=== PATIENT | male | born 1975 | race African-American/Black ===

== ENCOUNTER 2020-09-06 23:41 | Inpatient (IN) | payer OTHER, MEDICAID, SELFPAY ==
[~2020-09-06] VITALS: Ht 172.7 cm; Wt 83.5 kg
[~2020-09-06 23:41] MED LIST: ASC500 PO; ASPI-524 PO; BISA10SU61 RC; DEPAKOTE DR PO; DIPH25TA62 PO; DOCU100T10 PO; FAMO-132 PO; FERR325T30 SQ; HYDR-3919 PO; HYDR-3921 PO; HYDR-3927 PO; INSU100V; INSU100V9 SQ; LACT1CAP14 PO; LOVI40 SQ; MULT-1100 PO; OLAN5TAB3 PO; ONDA4TAB22 PO; SODI1TAB3 PO; VITAMIN B12 PO
[2020-09-06 23:43] VITALS: BP_SYST 111
--- NOTE | 2020-09-06 23:43 | NUR ---
Placed in room 04 . Placed on supervisor of officials, blood pressure machine and pulse oximeter. To gown for exam. Side rails up. Report given to JENNYFER YATES AND TATY RN
--- NOTE | 2020-09-06 23:48 | NUR ---
ER at bedside examining patient.
--- NOTE | 2020-09-06 23:48 | NUR ---
PATIENT ARRIVED WITH TAMMI STATING FULL CODE
[2020-09-07] MEDS ORDERED: ONDANSETRON HCL 4 MG/2 ML VIAL IVP ONE
[2020-09-07] MEDS ORDERED: NACL 0.9% 1,000 ML IV ONE
[2020-09-07] MEDS ORDERED: CLINDAMYCIN 900 mg/50mL D5W 50 ML IV ONE
[2020-09-07] MEDS ORDERED: PIPERACILLIN/TAZO 3.375 GM in NS 50 ML IV ONE ×2
--- NOTE | 2020-09-07 00:01 | NUR ---
Medication reconciliation completed with information provided by [facility]. Any prior medication reconciliation on file was reviewed and corrected.
--- NOTE | 2020-09-07 00:15 | NUR ---
WOUND TO LEFT BUTTOCK CLEANSED WITH BETADINE AND NS. COVERED WITH GAUZE.
[2020-09-07] MEDS ORDERED: PIPERACILLIN/TAZOBACTAM 3.375 GM/VIAL (ZOSYN) IV ONE ×2 (00:16→04:55)
--- NOTE | 2020-09-07 00:26 | NUR ---
PT BIB BLS AMBULANCE FROM [facility] FOR ABNORMAL LABS. PT HAS BEEN AT THE FACILITY FOR 3 MONTHS NOW FOR WOUND REHAB. RUBIO CATHETOR WAS IN PLACE BY FACILITY AND PRODUCING URINE. PT HAS PAIN IN THE BACK RATED AT 10/10.
--- NOTE | 2020-09-07 00:53 | NUR ---
# 22 gauge angiocath placed to RIGHT FOREARM. Use of asceptic technique. Opsite placed over site. Blood return noted. Blood for lab drawn from site. Flushed with 10 cc of normal saline. No evidence of infiltration noted. Patient tolerated well.
[2020-09-07 01:17] LABS: BASOPHILS # (AUTO) 0.1 K/uL (0.0-0.2); BASOPHILS % (AUTO) 0.4 % (0.0-2.0); EOSINOPHILS # (AUTO) 0.1 K/uL (0.0-0.4); EOSINOPHILS % (AUTO) 0.6 % (0.0-4.0); HEMATOCRIT 34.5 % (36-54); HEMOGLOBIN 10.7 g/dL (14.0-18.0); LYMPHOCYTES # (AUTO) 5.8 K/uL (1.0-5.5); LYMPHOCYTES % (AUTO) 25.3 % (20.5-51.5); MEAN CORPUSCULAR HEMOGLOBIN 26 pg (27-31); MEAN CORPUSCULAR HGB CONC 31 % (32-36); MEAN CORPUSCULAR VOLUME 82 fL (79.0-98.0); MONOCYTES # (AUTO) 2.4 K/uL (0.0-1.0); MONOCYTES % (AUTO) 10.3 % (1.7-9.3); NEUTROPHILS # (AUTO) 14.6 K/uL (1.8-7.7); NEUTROPHILS % (AUTO) 63.4 % (40.0-70.0); RED CELL DISTRIBUTION WIDTH 17.9 % (9.0-15.0)
[2020-09-07 01:23] LABS: PLATELET COUNT (AUTO) 1015 K/uL (130-430)
[2020-09-07 01:30] LABS: CALCIUM 8.6 mg/dL (8.4-11.0); CREATININE 0.76 mg/dL (0.55-1.30); POTASSIUM 4.2 mmol/L (3.5-5.1)
[2020-09-07] MEDS ORDERED: MORPHINE 2 MG/ML INJ. SYRINGE IVP ONE ×2 (01:30)
[2020-09-07 01:35] LABS: TOTAL BILIRUBIN 0.2 mg/dL (0.0-1.0)
[2020-09-07 01:44] LABS: BASOPHILS # (AUTO) 0.1 K/uL (0.0-0.2); BASOPHILS % (AUTO) 0.6 % (0.0-2.0); EOSINOPHILS # (AUTO) 0.1 K/uL (0.0-0.4); EOSINOPHILS % (AUTO) 0.3 % (0.0-4.0); HEMOGLOBIN 10.6 g/dL (14.0-18.0); LYMPHOCYTES % (AUTO) 22.4 % (20.5-51.5); MEAN CORPUSCULAR HEMOGLOBIN 26 pg (27-31); MEAN CORPUSCULAR HGB CONC 31 % (32-36); MEAN CORPUSCULAR VOLUME 82 fL (79.0-98.0); MONOCYTES # (AUTO) 2.8 K/uL (0.0-1.0); MONOCYTES % (AUTO) 12.4 % (1.7-9.3); NEUTROPHILS # (AUTO) 14.4 K/uL (1.8-7.7); NEUTROPHILS % (AUTO) 64.3 % (40.0-70.0); RED BLOOD CELL COUNT(AUTO) 4.13 MIL/uL (4.2-6.2); RED CELL DISTRIBUTION WIDTH 17.7 % (9.0-15.0); WHITE BLOOD COUNT (AUTO) 22.3 K/uL (4.8-10.8)
[2020-09-07 01:52] LABS: BILIRUBIN,URINE NEGATIVE (NEGATIVE); BLOOD, URINE 3+ (NEGATIVE); CLARITY/URINE CLEAR (CLEAR); COLOR,URINE YELLOW (YELLOW); GLUCOSE,URINE 3+ (NEGATIVE); KETONES,URINE NEGATIVE (NEGATIVE); LEUKOCYTE ESTERASE ,URINE 1+ (NEGATIVE); NITRITE, URINE POSITIVE (NEGATIVE); PROTEIN URINE 2+ (NEGATIVE); UROBILINOGEN,URINE 0.2 (0.2-1.0)
[2020-09-07 01:59] LABS: BACTERIA,URINE MANY /HPF (None Seen); WBC,URINE >100 /HPF (0-3)
[2020-09-07 02:08] LABS: PLATELET COUNT (AUTO) 983 K/uL (130-430)
--- NOTE | 2020-09-07 02:16 | NUR ---
Patient will be admitted to care of DR. HEREDIA. Admitted to TELEMETRY unit. ROOM REQUESTED. Belongings list completed. Complete and up to date summary report printed. SBAR report to be given at bedside with opportunity for questions.
[2020-09-07] MEDS ORDERED: INSULIN REGULAR, HUMAN 10 UNITS/0.1 ML INJ IVP ONE (02:30)
[2020-09-07] MEDS ORDERED: VANCOMYCIN HCL 1,000 MG in NS 250 ML IV ONE (02:30)
--- NOTE | 2020-09-07 03:01 | NUR ---
Transfer to TELEMETRY via ACLS protocol. Licensed nurse present. IV present no signs or symptoms of infiltration.
[2020-09-07 03:05] VITALS: BP_SYST 121
--- NOTE | 2020-09-07 03:05 | NUR ---
ADMISSION: The patient, SCOOTER ALEJO, 44 y/o, M admitted by EVELIN HEREDIA MD, was given written information regarding hospital policies, unit procedures and contact persons. Valuables were checked and document.
[2020-09-07 03:33] VITALS: BP_SYST 121
--- NOTE | 2020-09-07 04:10 | NUR ---
INITIAL NOTE PATIENT IS STABLE AND LAYING IN BED. NO S/S OF RESPIRATORY DISTRESS NOTED. CALL LIGHT IN REACH. PATIENT SUCCESSFULLY DEMONSTRATES USAGE OF CALL LIGHT. BED IS LOCKED, ALARMED, AND AT THE LOWEST POSITION. FALL, SAFETY, ASPIRATION, AND RESPIRATORY PRECAUTIONS WILL BE IN PLACE THROUGHOUT THE SHIFT. PLAN OF CARE IS DISCUSSED WITH PATIENT. Addendum: 09/07/20 at 9409 by Lizeth Shetty RN WRONG TIME [id number]*
--- NOTE | 2020-09-07 04:30 | NUR ---
CONSULTATION PAGED/CALLED Reason for Consultation: SEPSIS Person Who was Notified:MERCEDES Consulting Physician: Eloise FRANCO Clinical Secretary Specialty: Ordering Physician: YAN
[2020-09-07] MEDS: NACL 0.9% 1,000 ML IV SCH ×4 (04:34→22:15)
--- NOTE | 2020-09-07 04:40 | NUR ---
COMMUNICATED WITH DR. HEREDIA ABOUT PAIN. ORDERS RECEIVED.
[2020-09-07] MEDS ORDERED: VANCOMYCIN HCL 1000 MG/VIAL IV ONE (04:55)
[2020-09-07] MEDS: MORPHINE 2 MG/ML INJ. SYRINGE IVP PRN ×5 (05:30→22:16)
[2020-09-07] MEDS ORDERED: PIPERACILLIN/TAZO 3.375 GM in NS 50 ML IV SCH (06:00)
--- NOTE | 2020-09-07 06:58 | NUR ---
CLOSING NOTE PATIENT IS STABLE AND SLEEPING IN BED. NO S/S OF RESPIRATORY DISTRESS NOTED. CALL LIGHT IN REACH. SBAR REPORT WILL BE ENDORSED TO AM NURSE.
--- NOTE | 2020-09-07 07:15 | NUR ---
opening note received SBAR from night RN, patient in bed, respirations even, non labored, bed in low and locked position call light within reach, ivf's running as ordered, jiménez draining by gravity.
[2020-09-07 08:00] VITALS: BP_SYST 103
[2020-09-07] MEDS ORDERED: PIPERACILLIN/TAZOBACTAM 3.375 GM/ D5W 50 ML IV ONE ×2 (08:15)
[2020-09-07] MEDS ORDERED: cefTRIAXone 1 GM IVPB PREMIX 50 ML IV SCH (09:00)
--- NOTE | 2020-09-07 09:15 | NUR ---
NURSE NOTE PATIENT COMPLAINING OF PAIN, REQUESTING PAIN MEDICATION
--- NOTE | 2020-09-07 09:30 | NUR ---
Nutrition Update Nghia Scale 14 noted. Pt admitted for sepsis. Diet: 2 gm Na BMI: 28.1 kg/m2 RD to follow per nutrition care standards.
[2020-09-07] MEDS: CEFTRIAXONE SOD 1 GM/ D5W 50 ML IV SCH ×2 (09:46)
--- NOTE | 2020-09-07 10:31 | NUR ---
CASE MGT: [facility]
[2020-09-07 11:54] VITALS: BP_SYST 93
--- NOTE | 2020-09-07 12:20 | NUR ---
WOUND CARE REFUSAL ATTEMPTED TO PERFORM WOUND CARE, PATIENT REFUSED, EDUCATED PATIENT REGARDING THE INDICATIONS OF WOUND CARE, ANSWERED ALL QUESTIONS, PATIENT CONTINUED TO REFUSE
[2020-09-07] MEDS: VANCOMYCIN HCL 1,000 MG in NS 250 ML IV SCH ×2 (13:44→22:17)
[2020-09-07] MEDS: PIPERACILLIN/TAZOBACTAM 3.375 GM/ D5W 50 ML IV SCH ×4 (13:44→22:17)
--- NOTE | 2020-09-07 14:03 | NUR ---
nurse note attempt to assist patient with repositioning, patient refused to be turned, stated he is fine and will move when he wants
[2020-09-07 15:28] VITALS: BP_SYST 96
--- NOTE | 2020-09-07 15:47 | NUR ---
pictures attempted to take admission photos of patients heels, patient refused, educated patient regarding the necessity, patient verbalized understanding, continued to refuse
--- NOTE | 2020-09-07 17:32 | NUR ---
NURSE NOTE PATIENT IN BED, RESPIRATIONS EVEN, NON LABORED, EYES CLOSED. BED IN LOW AND LOCKED POSITION CALL LIGHT WITHIN REACH, NO SIGNS OF DISTRESS NOTED, NO FACIAL GRIMACING OR MOANING
--- NOTE | 2020-09-07 17:50 | NUR ---
NURSE NOTE PATIENT AWAKE, REQUESTING PAIN MEDICATION, 12/08
--- NOTE | 2020-09-07 19:15 | NUR ---
OPENING NOTES Patient resting in bed - no s/s pain or distress noted. Respirations even and unlabored - head of bed elevated. IV site patent - no s/s redness, infection, or infiltration. IV site patent - no s/s redness, infection, or infiltration. Bed locked and in lowest position. Call light within reach - bed alarm on.
--- NOTE | 2020-09-07 19:19 | NUR ---
closing note provided SBAR to night RN, patient in bed, respirations even, non labored, bed in low and locked position call light within reach, IVF's running as ordered, jiménez draining by gravity endorsed wound are and admission pictures to night RN patient refused earlier today. Endorsed care to night RN
[2020-09-07 20:00] VITALS: BP_SYST 101
--- NOTE | 2020-09-07 22:00 | NUR ---
ROUNDING NOTES/ PATIENT REFUSING DRESSING CHANGE Patient resting in bed - no s/s pain or distress noted. Respirations even and unlabored - head of bed elevated. IV site patent - no s/s redness, infection, or infiltration. IV site patent - no s/s redness, infection, or infiltration. Loomis catheter secured and intact. Bed locked and in lowest position. Call light within reach - bed alarm on. Patient refusing dressing change and picture taking of old dressings. Will continue to promote dressing change and picture taking throughout shift.
[2020-09-08] VITALS: BP_SYST 97
--- NOTE | 2020-09-08 | NUR ---
ROUNDING NOTES/ PATIENT STILL REFUSING DRESSING CHANGE Patient resting in bed - no s/s pain or distress noted. Respirations even and unlabored - head of bed elevated. IV site patent - no s/s redness, infection, or infiltration. IV site patent - no s/s redness, infection, or infiltration. Loomis catheter secured and intact. Bed locked and in lowest position. Call light within reach - bed alarm on. Patient continued refusing dressing change and picture taking of old dressings. Will continue to promote dressing change and picture taking throughout shift.
--- NOTE | 2020-09-08 02:00 | NUR ---
ROUNDING NOTES/ PATIENT CONTINUES TO REFUSE DRESSING CHANGE Patient resting in bed - no s/s pain or distress noted. Respirations even and unlabored - head of bed elevated. IV site patent - no s/s redness, infection, or infiltration. IV site patent - no s/s redness, infection, or infiltration. Loomis catheter secured and intact. Bed locked and in lowest position. Call light within reach - bed alarm on. Patient refusing dressing change and picture taking of old dressings. Will continue to promote dressing change and picture taking throughout shift.
--- NOTE | 2020-09-08 04:00 | NUR ---
ROUNDING NOTES/ REFUSAL OF DRESSING C HANGE ROUNDING NOTES/ PATIENT STILL REFUSING DRESSING CHANGE Patient resting in bed - no s/s pain or distress noted. Respirations even and unlabored - head of bed elevated. IV site patent - no s/s redness, infection, or infiltration. IV site patent - no s/s redness, infection, or infiltration. Loomis catheter secured and intact. Bed locked and in lowest position. Call light within reach - bed alarm on. Patient refusing dressing change + picture of foot dressing. Will continue to promote dressing change and picture taking throughout shift.
[2020-09-08] MEDS: NACL 0.9% 1,000 ML IV SCH ×3 (04:55→17:12)
[2020-09-08] MEDS: PIPERACILLIN/TAZOBACTAM 3.375 GM/ D5W 50 ML IV SCH ×6 (05:54→21:32)
[2020-09-08] MEDS: VANCOMYCIN HCL 1,000 MG in NS 250 ML IV SCH (05:54)
--- NOTE | 2020-09-08 06:26 | NUR ---
CLOSING NOTES/ PATIENT REFUSING DRESSING CHANGE THROUGHOUT SHIFT Patient resting in bed - no s/s pain or distress noted. Respirations even and unlabored - head of bed elevated. IV site patent - no s/s redness, infection, or infiltration. IV site patent - no s/s redness, infection, or infiltration. Loomis catheter secured and intact. Bed locked and in lowest position. Call light within reach - bed alarm on. Patient has refused dressing change throughout shift. Will endorse to change of shift.
--- NOTE | 2020-09-08 07:27 | NUR ---
OPENING NOTE RECEIVED SBAR FROM NIGHT RN, PATIENT IN BED, RESPIRATIONS EVEN, NON LABORED, BED IN LOW AND LOCKED POSITION, CALL LIGHT WITHIN REACH, BED ALARM ON, IVF'S RUNNING ORDERED. RUBIO DRAINING BY GRAVITY
--- NOTE | 2020-09-08 08:00 | NUR ---
NURSE NOTE OBTAINED VS, PATIENT COMPLAINING OF PAIN, 07/08, REQUESTING MEDICATION
[2020-09-08] MEDS: CEFTRIAXONE SOD 1 GM/ D5W 50 ML IV SCH ×2 (08:08)
[2020-09-08] MEDS: MORPHINE 2 MG/ML INJ. SYRINGE IVP PRN ×4 (08:18→21:31)
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
--- NOTE | 2020-09-08 11:26 | NUR ---
REFUSED AIR MATTRESS EDUCATED PATIENT ON THE NECESSITY OF AN AIR MATTRESS, ANSWERED ALL QUESTIONS PATIENT VERBALIZED UNDERSTANDING, PATIENT STATED "NO" NO AIR MATTRESS" EDUCATED PATIENT THAT CURRENT WOUNDS COULD CONTINUE TO DETERIORATE, AND NEW WOUNDS CAN APPEAR, PATIENT STATED "I SAID NO AIR MATTRESS"
[2020-09-08 11:35] VITALS: BP_SYST 109
--- NOTE | 2020-09-08 12:00 | NUR ---
NURSE NOTE PATIENT COMPLAINING OF PAIN AT IV SITE, REMOVED IV CATHETER INTACT, NO ACTIVE BLEEDING, INSERTED NEW IV TO LEFT FOREARM, 20 G. 2 ATTEMPTS, FLUSHED FREELY, WILL MONITOR FOR SIGNS OF INFILTRATION
[2020-09-08 16:07] VITALS: BP_SYST 115
[2020-09-08] MEDS: VANCOMYCIN HCL 750 MG/NS 250 ML IV SCH (16:23)
--- NOTE | 2020-09-08 17:17 | NUR ---
NURSE NOTE PATIENT REFUSED ME TO ASSESS BILATERAL HEELS, BOTH STILL HAVE DRESSING FROM BEFORE PATIENT WAS HOSPITALIZED, OFFERED TO PROVIDE WOUND CARE AND TAKE PICTURES, PATIENT REFUSED, EDUCATED PATIENT REGARDING THE NECESSITY OF WOUND CARE, AND COMPLICATIONS REGARDING WOUNDS INCLUDING AMPUTATION AND . PATIENT VERBALIZED UNDERSTANDING AND STATED "THEIR FINE"
--- NOTE | 2020-09-08 18:22 | NUR ---
IV IV INFILTRATED, REMOVED IV CATHETER INTACT, NO ACTIVE BLEEDING, WILL ENDORSE NEW IV TO NIGHT RN
--- NOTE | 2020-09-08 19:01 | NUR ---
closing note provided sbar to night RN, patient in bed, respirations even, non labored, bed in low and locked position, call light within reach, jiménez draining by gravity, Endorsed insertion of IV to night RN. Endorsed care to night RN.
--- NOTE | 2020-09-08 19:15 | NUR ---
OPENING NOTES Patient resting in bed - no s/s pain or distress noted. Respirations even and unlabored - head of bed elevated. IV site absent - will insert new IV. Bed locked and in lowest position. Loomis catheter secure and draining by gravity. Call light within reach - bed alarm on.
[2020-09-08 20:00] VITALS: BP_SYST 109
--- NOTE | 2020-09-08 21:00 | NUR ---
ROUNDING NOTES/ NEW IV INSERTED/ EPISODE OF AGGRESSION Patient resting in bed - no s/s pain or distress noted. Respirations even and unlabored - head of bed elevated. Bed locked and in lowest position. Loomis catheter secure and draining by gravity. Call light within reach - bed alarm on. Upon initial performance of IV insertion - patient had episode of spontaneous aggression with incoherent statements towards RN. After patient calmed down, RN resumed IV insertion attempt. Tried 3 times - called for assistance from charge nurse. New IV inserted 22G LAC by charge nurse.
--- NOTE | 2020-09-09 00:15 | NUR ---
ROUNDING NOTES/ PATIENT REFUSE TEMPERATURE CHECK/ REFUSE DRESSING CHANGE Patient resting in bed - no s/s pain or distress noted. Respirations even and unlabored - head of bed elevated. IV site patent no s/s redness, infection, or infiltration. Bed locked and in lowest position. Loomis catheter secure and draining by gravity. Call light within reach - bed alarm on. During vital signs checks at 0000, patient refused temperature check. Patient educated about risks of refusal. Patient states "Do not touch my head." Will check at a later time - patient shows no s/s fever. Patient refuses dressing change. Patient educated about risks of refusal. Patient states "I do not want the bandages removed. Let them stay there." Will attempt change later on this shift.
[2020-09-09 00:35] VITALS: BP_SYST 105
[2020-09-09] MEDS: NACL 0.9% 1,000 ML IV SCH ×4 (00:55→22:51)
--- NOTE | 2020-09-09 02:10 | NUR ---
ROUNDING NOTES/ DRESSINGS CHANGED Patient resting in bed - no s/s pain or distress noted. Respirations even and unlabored - head of bed elevated. IV site patent no s/s redness, infection, or infiltration. Bed locked and in lowest position. Loomis catheter secure and draining by gravity. Call light within reach - bed alarm on. L hip and L buttocks dressings changed but with specific requests from pt to use 2x2 mesh dressings with tape and abdominal dressings, respectively. Patient noted to have excess leakage from wounds - yellow and reddish fluid had shot out from wounds - prompting patient to adhere to dressing change. Foot dressings remain untouched and patient continues to refuse undressing both feet.
[2020-09-09] MEDS: MORPHINE 2 MG/ML INJ. SYRINGE IVP PRN ×4 (02:23→22:50)
--- NOTE | 2020-09-09 04:00 | NUR ---
ROUNDING NOTES - PATIENT STILL REFUSING FURTHER DRESSING CHANGES Patient resting in bed - no s/s pain or distress noted. Respirations even and unlabored - head of bed elevated. Bed locked and in lowest position. Loomis catheter secure and draining by gravity. Call light within reach - bed alarm on. Patient refusing dressing changes on feet. Education ineffective - patient adamantly refusing education. Will try again later this shift.
[2020-09-09] MEDS: PIPERACILLIN/TAZOBACTAM 3.375 GM/ D5W 50 ML IV SCH ×2 (05:33)
[2020-09-09 06:58] LABS: BASOPHILS # (AUTO) 0.1 K/uL (0.0-0.2); BASOPHILS % (AUTO) 0.4 % (0.0-2.0); EOSINOPHILS # (AUTO) 0.2 K/uL (0.0-0.4); EOSINOPHILS % (AUTO) 1.2 % (0.0-4.0); HEMATOCRIT 31.3 % (36-54); LYMPHOCYTES # (AUTO) 4.1 K/uL (1.0-5.5); LYMPHOCYTES % (AUTO) 27.8 % (20.5-51.5); MEAN CORPUSCULAR HEMOGLOBIN 26 pg (27-31); MEAN CORPUSCULAR HGB CONC 32 % (32-36); MEAN CORPUSCULAR VOLUME 81 fL (79.0-98.0); MONOCYTES # (AUTO) 1.3 K/uL (0.0-1.0); MONOCYTES % (AUTO) 9.1 % (1.7-9.3); NEUTROPHILS # (AUTO) 9.1 K/uL (1.8-7.7); NEUTROPHILS % (AUTO) 61.5 % (40.0-70.0); RED BLOOD CELL COUNT(AUTO) 3.85 MIL/uL (4.2-6.2); WHITE BLOOD COUNT (AUTO) 14.7 K/uL (4.8-10.8)
--- NOTE | 2020-09-09 07:25 | NUR ---
CLOSING NOTES Patient resting in bed - no s/s pain or distress noted. Respirations even and unlabored - head of bed elevated. IV site absent - will insert new IV. Bed locked and in lowest position. Loomis catheter secure and draining by gravity. Call light within reach - bed alarm on. Patient had continuously refused dressing changes for the feet. Will endorse to morning shift.
[2020-09-09 07:26] LABS: ALANINE AMINOTRANSFERASE 8 U/L (12-78); ALBUMIN 1.7 g/dL (3.4-4.8); ANION GAP 9 (5-15); ASPARTATE AMINOTRANSFERASE < 5 U/L (10-37); CALCIUM 8.1 mg/dL (8.4-11.0); CHLORIDE 95 mmol/L (98-107); CREATININE 0.67 mg/dL (0.55-1.30); POTASSIUM 4.3 mmol/L (3.5-5.1); SODIUM SERUM 131 mmol/L (136-145); TOTAL BILIRUBIN 0.2 mg/dL (0.0-1.0); UREA NITROGEN, BLOOD 7 mg/dL (8-21)
[2020-09-09 07:44] LABS: GFR AFRICAN AMERICAN 166 mL/min (>90)
[2020-09-09 07:45] LABS: GLUCOSE 433 mg/dL (70-99)
[2020-09-09 08:00] VITALS: BP_SYST 106
[2020-09-09 08:57] LABS: PLATELET COUNT (AUTO) 942 K/uL (130-430)
[2020-09-09] MEDS ORDERED: INSULIN REGULAR, HUMAN 100 UNITS/ML, 10 ML VIAL SUBCUT ONE (09:00)
[2020-09-09] MEDS: VANCOMYCIN HCL 750 MG/NS 250 ML IV SCH ×4 (09:53→22:58)
[2020-09-09] MEDS: CEFTRIAXONE SOD 1 GM/ D5W 50 ML IV SCH ×2 (11:00)
[2020-09-09 11:23] VITALS: BP_SYST 107
--- NOTE | 2020-09-09 11:31 | NUR ---
Dietitian Recommendations *Recommend: add [facility] diet to current order. *Recommend: add Glucerna BID, Ottoniel BID. Please see Nutritional Assessment for details. [facility]LDER [facility] Addendum: 09/09/20 at [address] Additional Dietitian Rec: *Recommend: insulin coverage. [facility]LDER [facility]
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
--- NOTE | 2020-09-09 13:57 | NUR ---
ATTEMPTED TO SEE PATIENT FOR PHYSICAL THERAPY EVALUATION HOWEVER PATIENT REFUSED. UPON ARRIVAL, WATER BUCKET AND OTHER OBJECTS SEEN ACROSS THE FLOOR THROWN BY PATIENT. PATIENT VERY IRRITABLE STATING HE DOES NOT WANT TO BE SEEN FOR PHYSICAL THERAPY; EDUCATED THE IMPORTANCE OF MOBILITY HOWEVER PATIENT CONTINUED REFUSAL. OFFERED PATIENT TO BE SEEN LATER HOWEVER PATIENT STATED "I WILL NOT GET UP WITH YOU NOW AND I WILL NOT GET UP WITH YOU LATER". WILL ATTEMPT TOMORROW FOR EVALUATION; PATIENT REPORTS HE WILL REFUSE TOMORROW WELL. RN AWARE AND REPORTS PATIENT HAS BEEN ACTING THIS WAY WITH HER WELL; WILL FOLLOW UP TOMORROW.
[2020-09-09 16:09] VITALS: BP_SYST 106
--- NOTE | 2020-09-09 16:34 | NUR ---
PAGED PAGED [facility] [place] AT [phone] SPOKE WITH GABE.
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
--- NOTE | 2020-09-09 19:00 | NUR ---
closing notes pt simply refused wound crae accucheck today. ivf infusing well on the l upper arm. no infiltration noted. bed to the lowest position and side rails up and locked.
[2020-09-09 20:00] VITALS: BP_SYST 115
--- NOTE | 2020-09-09 21:45 | NUR ---
patient awake alert on 2 Gm Na po diet HOB elevated chest movement symmetrical call manuel given to patient .
[2020-09-09] MEDS: MEROPENEM 1 GM in NS 100 ML IV SCH (22:47)
[2020-09-09] MEDS: INSULIN REGULAR, HUMAN 100 UNITS/ML, 10 ML VIAL (humuLIN R) SUBCUT PRN (22:49)
--- NOTE | 2020-09-09 23:46 | NUR ---
Patient Refusing wound assessments .
--- NOTE | 2020-09-09 23:46 | NUR ---
patient Refusing left toe/ left foot assessment .
--- NOTE | 2020-09-10 00:09 | NUR ---
MORPHINE SULFATE 2 MG IVP administer for general pain per patient Request position change encouraged .
--- NOTE | 2020-09-10 03:55 | NUR ---
VANCOMYCIN 750 MG IVPB administer as ordered no adverse Reaction noted .
[2020-09-10] MEDS: NACL 0.9% 1,000 ML IV SCH ×4 (05:33→23:35)
[2020-09-10] MEDS: MEROPENEM 1 GM in NS 100 ML IV SCH ×3 (05:33→21:40)
[2020-09-10] MEDS: INSULIN REGULAR, HUMAN 100 UNITS/ML, 10 ML VIAL (humuLIN R) SUBCUT PRN ×3 (05:34→17:14)
[2020-09-10] MEDS: MORPHINE 2 MG/ML INJ. SYRINGE IVP PRN ×3 (05:35→20:37)
--- NOTE | 2020-09-10 06:05 | NUR ---
wound care provided to left & right buttocks & left hip flank areas , kept clean and dry patient awake alert Refusing care at times procedures explained comfort measures implemented & helpful .
--- NOTE | 2020-09-10 06:05 | NUR ---
MORPHINE SULFATE 2 MG IVP administer for pain & helpful .
--- NOTE | 2020-09-10 06:08 | NUR ---
PHONED PAGED DR YAN PORTER FOR ORDERS .
--- NOTE | 2020-09-10 06:18 | NUR ---
NEW ORDERS , DR YAN PORTER , FOR PICC LINE .
--- NOTE | 2020-09-10 08:00 | NUR ---
initial notes rec patient awake alert but with mood swings. iv infiltrated on the l upper arm and removed. awaiting for the picc line nurse to come . resp easy and unlabored. no sob noted. call light within reached. will continue to monitor patient.
[2020-09-10 08:03] LABS: PROTHROMBIN TIME 10.6 SECS (9.5-12.5)
[2020-09-10] MEDS: VANCOMYCIN HCL 750 MG/NS 250 ML IV SCH ×2 (09:12→17:03)
--- NOTE | 2020-09-10 14:00 | NUR ---
rounds offered to do wound care at this time but refused. no sob noted. bed to the lowest position.
--- NOTE | 2020-09-10 14:00 | NUR ---
Patient Refused Wound Care: Late note for 09/10/2020 at 1400. Patient refused wound care evaluation. We will try again at another time.
[2020-09-10 14:07] VITALS: BP_SYST 113
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
[2020-09-10 16:38] VITALS: BP_SYST 105
--- NOTE | 2020-09-10 18:15 | NUR ---
notes pt requested to have wound care at this time. stated to him that next shift will do it. resting comfortably.
--- NOTE | 2020-09-10 19:30 | NUR ---
closing notes watching tv, picc line in place. no infiltration noted. call light within reached.
--- NOTE | 2020-09-10 19:35 | NUR ---
OPENING NOTE RECEIVED REPORT FROM DAY RN. PATIENT LAYING IN BED WITH RESPIRATIONS EVEN AND UNLABORED ON RA. PT AGITATED AND REQUESTING PAIN MEDICATION. PT ALLOWED BLOOD PRESSURE AND PULSE OXIMETER BUT REFUSED TEMPERATURE TO BE TAKEN. NIMESH PICC LINE IN PLACE. NO SIGNS OF INFILTRATION NOTED. PICC RUNNING IVF. PT TOLERATING WELL. RUBIO CATHETER IN PLACE AND DRAINING YELLOW FLUID. PT ON ISOLATION FOR URINE ECOLI. PT REFUSED TO SHOW WOUNDS. EDUCATED PT ON IMPORTANCE OF WOUND CARE. PT CONTINUES TO REFUSE. BED IN LOW AND LOCKED POSITION. CALL LIGHT WITHIN REACH. SAFETY PRECAUTIONS IN PLACE. WILL CONTINUE TO MONITOR.
[2020-09-10 20:00] VITALS: BP_SYST 126
--- NOTE | 2020-09-10 20:41 | NUR ---
PT REFUSED GLUCOMETER TEST. EDUCATED PT ON IMPORTANCE OF CHECKING BLOOD SUGARS. PT CONTINUES TO REFUSE.
[2020-09-11] MEDS: VANCOMYCIN HCL 750 MG/NS 250 ML IV SCH ×3 (00:05→16:09)
[2020-09-11] MEDS: MEROPENEM 1 GM in NS 100 ML IV SCH ×3 (05:53→20:35)
[2020-09-11] MEDS: NACL 0.9% 1,000 ML IV SCH ×3 (05:53→15:09)
[2020-09-11] MEDS: MORPHINE 2 MG/ML INJ. SYRINGE IVP PRN ×3 (05:57→20:36)
--- NOTE | 2020-09-11 07:01 | NUR ---
PATIENT AWAKE LAYING IN BED WITH RESPIRATIONS EVEN AND UNLABORED ON RA. NO SIGNS OF DISTRESS NOTED. NIMESH PICC PATENT AND INTACT. DRESSING CLEAN AND DRY. NO SIGNS OF INFILTRATION NOTED. LINENS CHANGED. RUBIO INTACT AND DRAINING YELLOW FLUID. BED IN LOW AND LOCKED POSITION. SAFETY/FALL PRECAUTIONS IN PLACE. ALL NEEDS MET THROUGHOUT THE NIGHT. WILL ENDORSE TO DAY RN.
--- NOTE | 2020-09-11 07:50 | NUR ---
Patient refused Patient refused Temperature check. Attempted to educate patient on importance however patient does not want to hear it. Will attempt to reenforce education.
--- NOTE | 2020-09-11 07:55 | NUR ---
Patient refused Patient refused physical assessment, unable to educate because patient is agitated. Will attempt to educate throughout the shift.
--- NOTE | 2020-09-11 07:56 | NUR ---
Opening note Patient is sitting in bed a&O 3/4, hostile, does not want me in the room. Patient states "get the "F" out" . Unable to educate on plan of care due, will attempt to educate through out the shift. bed is in lowest postion, fall and aspiration precautions are in place. Will continue to monitor.
[2020-09-11 08:08] VITALS: BP_SYST 116
[2020-09-11 10:27] LABS: BASOPHILS # (AUTO) 0.1 K/uL (0.0-0.2); BASOPHILS % (AUTO) 0.4 % (0.0-2.0); EOSINOPHILS # (AUTO) 0.2 K/uL (0.0-0.4); EOSINOPHILS % (AUTO) 1.4 % (0.0-4.0); HEMATOCRIT 30.6 % (36-54); HEMOGLOBIN 9.8 g/dL (14.0-18.0); LYMPHOCYTES # (AUTO) 3.8 K/uL (1.0-5.5); LYMPHOCYTES % (AUTO) 28.4 % (20.5-51.5); MEAN CORPUSCULAR HEMOGLOBIN 26 pg (27-31); MEAN CORPUSCULAR HGB CONC 32 % (32-36); MEAN CORPUSCULAR VOLUME 82 fL (79.0-98.0); MONOCYTES # (AUTO) 1.1 K/uL (0.0-1.0); MONOCYTES % (AUTO) 8.5 % (1.7-9.3); NEUTROPHILS # (AUTO) 8.3 K/uL (1.8-7.7); NEUTROPHILS % (AUTO) 61.3 % (40.0-70.0); RED BLOOD CELL COUNT(AUTO) 3.73 MIL/uL (4.2-6.2); RED CELL DISTRIBUTION WIDTH 17.4 % (9.0-15.0); WHITE BLOOD COUNT (AUTO) 13.5 K/uL (4.8-10.8)
[2020-09-11 10:38] LABS: CALCIUM 8.1 mg/dL (8.4-11.0); CREATININE 0.65 mg/dL (0.55-1.30); POTASSIUM 4.3 mmol/L (3.5-5.1)
[2020-09-11 10:43] LABS: ALBUMIN 1.6 g/dL (3.4-4.8); TOTAL BILIRUBIN 0.1 mg/dL (0.0-1.0)
--- NOTE | 2020-09-11 10:45 | NUR ---
CONSULT SURGERY DEBRIDEMENT JANEY REDMAN [phone] S/W [facility] OFFICE
--- NOTE | 2020-09-11 11:30 | NUR ---
Patient refused Patient refused Accu check, educated patient on importance, patient refuses to receive education. Will attempt to educate throughout the shift.
[2020-09-11 12:09] VITALS: BP_SYST 106
[2020-09-11 13:14] LABS: PLATELET COUNT (AUTO) 811 K/uL (130-430)
--- NOTE | 2020-09-11 13:15 | NUR ---
Patient Refused Patient refused wound care, educated patient on the importance of wound care. Patient refused.
--- NOTE | 2020-09-11 13:17 | NUR ---
Patient Refused Wound Care: Patient refused wound care evaluation. We will try again at another time.
--- NOTE | 2020-09-11 15:16 | NUR ---
ATTEMPTED TO SEE PATIENT FOR PHYSICAL THERAPY EVALUATION HOWEVER PATIENT REFUSED STATING "I NEED A DIAPER". ATTEMPTED TO BRING DIAPER FOR PATIENT TO COMPLY HOWEVER PATIENT THEN STATED "NO I DO NOT WANT AN EVALUATION I AM NOT GOING TO MOVE AROUND WITH MY WOUNDS." RE-EDUCATED PATIENT ON IMPORTANCE OF MOBILITY; PATIENT BECAME AGITATED AND STATED HE UNDERSTOOD THE COMPLICATIONS THAT COULD OCCUR. WILL FOLLOW UP IF APPROPRIATE; RN AWARE.
[2020-09-11 16:07] VITALS: BP_SYST 112
--- NOTE | 2020-09-11 18:41 | NUR ---
Closing note Patient is sitting in bed a&O 3/4, no complaint of pain or discomfort at this time. Bed is in lowest position, fall and aspiration precautions are in place. All needs were met, Will endorse report to rate engineer.
--- NOTE | 2020-09-11 19:35 | NUR ---
OPENING NOTE RECEIVED REPORT FROM DAY RN. PATIENT LAYING IN BED WITH RESPIRATIONS EVEN AND UNLABORED ON RA. PT REQUESTING PRN PAIN MEDICATION. RUBIO INTACT AND DRAINING YELLOW LIQUID. RIGHT UPPER ARM PICC CLEAN, DRY AND INTACT. NO SIGNS OF INFILTRATION NOTED. NIMESH PICC RUNNING IVF. PT TOLERATING WELL. EDUCATED PT ON PLAN OF CARE. BED IN LOW AND LOCKED POSITION. CALL LIGHT WITHIN REACH. SAFETY/FALL PRECAUTIONS IN PLACE. WILL CONTINUE TO MONITOR.
[2020-09-11 20:00] VITALS: BP_SYST 112
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
--- NOTE | 2020-09-11 20:30 | NUR ---
PT REFUSED THERMOMETER CHECK PT STATES HE DOES NOT WANT HIS TEMPERATURE CHECKED. TRIED TO EDUCATE PT ON SIGNS AND SYMPTOMS OF FEVER, PT REFUSED EDUCATION. WILL CONTINUE TO MONITOR.
[2020-09-11] MEDS ORDERED: NICOTINE 21 MG/24 HR PATCH.TD24 TD SCH (21:45)
[2020-09-12] MEDS: VANCOMYCIN HCL 750 MG/NS 250 ML IV SCH ×2 (00:06→08:22)
[2020-09-12] MEDS: NACL 0.9% 1,000 ML IV SCH ×2 (02:15→05:40)
[2020-09-12] MEDS: MEROPENEM 1 GM in NS 100 ML IV SCH ×2 (05:34→13:43)
--- NOTE | 2020-09-12 06:13 | NUR ---
PT REFUSED ACCU CHECK EDUCATED PT ON IMPORTANCE OF CHECKING UNCONTROLLED SUGAR LEVELS. PT CONTINUES TO REFUSE.
--- NOTE | 2020-09-12 06:18 | NUR ---
CLOSING NOTE PATIENT LAYING IN BED WITH RESPIRATIONS EVEN AND UNLABORED ON RA. NIMESH PICC CLEAN, DRY, AND INTACT RUNNING IVF. NO SIGNS OF INFILTRATION NOTED. PT DIAPHORETIC AND REQUESTING ADDITIONAL BLANKET. ASKS TO GET PTS TEMPERATURE AND PT REFUSED. EDUCATED PT ON SIGNS AND SYMPTOMS OF UNCONTROLLED DM. PT CONTINUES TO REFUSE TEMPERATURE AND GLUCOMETER CHECKS. ALL NEEDS MET THROUGHOUT THE NIGHT. BED IN LOW AND LOCKED POSITION. RUBIO INTACT AND DRAINING YELLOW FLUID. CALL LIGHT WITHIN REACH. WILL ENDORSE TO DAY RN.
[2020-09-12 08:00] VITALS: BP_SYST 103
[2020-09-12] MEDS: MORPHINE 2 MG/ML INJ. SYRINGE IVP PRN (09:53)
--- NOTE | 2020-09-12 12:12 | NUR ---
Attending md Dr Wynn discharge pt to SNF. Notified [facility] ARCHEL An for SNF placement. She said she will contact [facility] if his bed is still available.
--- NOTE | 2020-09-12 12:16 | NUR ---
alert, oriented, abusive with language. cooperative today, asked L upper thigh dressing be changed, request honored. asked for pain meds, MSO4 one mg ivp given seen by ID, patient will be discharged back to the SNF.
[2020-09-12 12:37] VITALS: BP_SYST 112
--- NOTE | 2020-09-12 13:44 | NUR ---
awaiting [facility] to call back with bed assignment, and ambulance bulk picker time. For now continues to ask for pain, made aware pain meds dc'd since the discharge order written.
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
--- NOTE | 2020-09-12 13:45 | NUR ---
Patient Refused Wound Care: Patient refused wound care evaluation. Tried to explain importance of wound care but patient became agitated and was abusive with his language.
[2020-09-12 13:58] VITALS: BP_SYST 103
--- NOTE | 2020-09-12 14:45 | NUR ---
CONFIRMED BY [facility] CM MS CHRISTINE JONES THAT PT IS GOING TO [facility] RM 420B. [facility] WILL CALL AGREED A HANDLE FINISHER TIME AT 1630. SPOKE TO SILVANA.
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
--- NOTE | 2020-09-12 15:21 | NUR ---
Dietitian Recommendations *Recommend: continue CCHO, Na2gm diet with Glucerna BID, Ottoniel BID. LP, RD Please refer to Nutrition F/U for details.
--- NOTE | 2020-09-12 15:29 | NUR ---
Got the message from [facility], patient is discharged back to [facility], Room #420b, report given to Dhara, . will be leaving the floor this afternoon at 1630, with indwelling jiménez remains, secondary to big decubetes on L butock, so does NIMESH PICC, for the continuation of abx, both po and ivpb. CLINDAMYCIN PO, 300MG EVERY 8HRS, X 7DAYS INVANZ ONE GRAM, IVPB , DAILY X 7DAYS The patient's mother made aware of this transfer- [phone], Marylin Reid.
[2020-09-12 16:25] VITALS: BP_SYST 112
--- NOTE | 2020-09-12 18:03 | NUR ---
despite of the fact dressing on Left upper thigh changed this am, soaked wet with all yellowish, odorous oozage. Attempted to change again when ambulance here for sweet pickle maker, flatly refused. left the floor at 1800, alert, oriented, denied pain. discharged now to [facility], [facility]
== END 2020-09-12 18:15 | DRG 871 ==
LOC: SED 23:41 → STU 09-07 02:01
PROVIDERS: ADMIT Internal Medicine; ATTEND Internal Medicine Hospice and Palliative Medicine
DX: A41.9 Sepsis, unspecified organism (principal); L89.154 Pressure ulcer of sacral region, stage 4; N39.0 Urinary tract infection, site not specified; G82.20 Paraplegia, unspecified; L03.311 Cellulitis of abdominal wall; L02.211 Cutaneous abscess of abdominal wall; F20.9 Schizophrenia, unspecified; D47.3 Essential (hemorrhagic) thrombocythemia; Z20.822 Contact with and (suspected) exposure to COVID-19; E11.9 Type 2 diabetes mellitus without complications; E87.5 Hyperkalemia; Z79.899 Other long term (current) drug therapy; Z79.891 Long term (current) use of opiate analgesic; Z79.82 Long term (current) use of aspirin
CPT/HCPCS: 36415; 71045; 80053; 80202; 81000; 82962; 83605; 85025; 85610-TC; 85730-TC; 86710; 87040-TC; 87081; 87086; 96365; 96368; 96375; 96376; 99291; G0378; J0696; J1815; J2185; J2270; J2405; J2543; J3370; J3490; J7050; J7060

== ENCOUNTER 2021-01-02 22:20 | Inpatient (IN) | payer OTHER, MEDICAID, SELFPAY ==
[~2021-01-02] VITALS: Ht 172.7 cm; Wt 83.5 kg
[2021-01-02 22:25] VITALS: BP_SYST 136
--- NOTE | 2021-01-02 22:40 | NUR ---
Patient BIB by BLS/EMS from [facility]. C/O left hip pain x today. Per reported, patient had left hip pain/wound left hip, dislocate, and back pain. Hx Paraplegia, Thrombocytopenia, Bipolar, Schizophrenia, DM,HTN, Neurogenic bladder, A/O,X4, left hip wound, dislocate left hip, paraplegia, back and hip pain, pain rate 10/10.
--- NOTE | 2021-01-02 22:48 | NUR ---
Patient to ER bed 4 to gown for evaluation. Side rails up. Report given to Jayleen BURGER.
--- NOTE | 2021-01-02 23:41 | NUR ---
ER Dr. Ferraro at bedside examining patient.
[2021-01-03] MEDS ORDERED: VANCOMYCIN HCL 1,000 MG in NS 250 ML IV ONE ×2
[2021-01-03] MEDS ORDERED: VANCOMYCIN HCL 500 MG in NS 100 ML IV ONE ×2
[2021-01-03] MEDS ORDERED: MORPHINE 4 MG INJ. 4 MG/ML VIAL IVP ONE
[2021-01-03] MEDS ORDERED: VANCOMYCIN HCL 1000 MG/VIAL IV ONE (00:16)
[2021-01-03 00:19] LABS: BASOPHILS % (AUTO) 0.3 % (0.0-2.0); EOSINOPHILS # (AUTO) 0.3 K/uL (0.0-0.4); EOSINOPHILS % (AUTO) 2.4 % (0.0-4.0); HEMATOCRIT 28.6 % (36-54); LYMPHOCYTES # (AUTO) 5.4 K/uL (1.0-5.5); LYMPHOCYTES % (AUTO) 41.7 % (20.5-51.5); MEAN CORPUSCULAR HEMOGLOBIN 25 pg (27-31); MEAN CORPUSCULAR HGB CONC 31 % (32-36); MEAN CORPUSCULAR VOLUME 79 fL (79.0-98.0); MONOCYTES # (AUTO) 1.1 K/uL (0.0-1.0); MONOCYTES % (AUTO) 8.1 % (1.7-9.3); NEUTROPHILS # (AUTO) 6.2 K/uL (1.8-7.7); NEUTROPHILS % (AUTO) 47.5 % (40.0-70.0); RED BLOOD CELL COUNT(AUTO) 3.63 MIL/uL (4.2-6.2); RED CELL DISTRIBUTION WIDTH 19.6 % (9.0-15.0)
--- NOTE | 2021-01-03 00:20 | NUR ---
COVID-19 and MRSA swabs collected and sent to lab.
[2021-01-03 00:25] LABS: PLATELET COUNT (AUTO) 888 K/uL (130-430)
--- NOTE | 2021-01-03 00:25 | NUR ---
Critical Lab Reporting - Platelets 888. and primary RN aware.
[2021-01-03 00:31] LABS: CALCIUM 8.7 mg/dL (8.4-11.0); CHLORIDE 93 mmol/L (98-107); CREATININE 0.68 mg/dL (0.55-1.30); GLUCOSE 339 mg/dL (70-99); POTASSIUM 4.2 mmol/L (3.5-5.1); SODIUM SERUM 127 mmol/L (136-145); UREA NITROGEN, BLOOD 8 mg/dL (8-21)
--- NOTE | 2021-01-03 00:36 | NUR ---
Patient signed consent for CT abdomen/Pelvis with contrast.
[2021-01-03 00:44] LABS: ALANINE AMINOTRANSFERASE 11 U/L (12-78); ALBUMIN 1.7 g/dL (3.4-4.8); ASPARTATE AMINOTRANSFERASE 7 U/L (10-37); TOTAL BILIRUBIN 0.1 mg/dL (0.0-1.0)
[2021-01-03 00:47] LABS: ANION GAP < 3 (5-15); GFR AFRICAN AMERICAN 162 mL/min (>90)
--- NOTE | 2021-01-03 01:23 | NUR ---
Medication reconciliation completed with information provided by facility documents.. Any prior medication reconciliation on file was reviewed and corrected.
--- NOTE | 2021-01-03 01:30 | NUR ---
Patient transported to radiology via gurney, accompanied by vascular technician.
--- NOTE | 2021-01-03 02:15 | NUR ---
Patient resting quietly. No acute distress noted. Vital signs within normal range.
[2021-01-03] MEDS ORDERED: VANCOMYCIN HCL 500 MG/VIAL IV ONE (03:12)
--- NOTE | 2021-01-03 03:17 | NUR ---
Patient will be admitted to care of Dr. Wynn. Admitted to MEDSURG unit. Will go to room PENDING. Complete and up to date summary report printed. SBAR report to be given at bedside with opportunity for questions.
--- NOTE | 2021-01-03 03:18 | NUR ---
Requested Medsurg bed from Shant Mcmahon RN
--- NOTE | 2021-01-03 03:42 | NUR ---
Patient will be admitted to care of Dr. Crowell. Admitted to MS unit. Will go to room 118A. Belongings list completed. Complete and up to date summary report printed. SBAR report to be given at bedside with opportunity for questions.
[2021-01-03 04:32] VITALS: BP_SYST 104
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
[2021-01-03] MEDS: NACL 0.9% 1,000 ML IV SCH (07:49)
--- NOTE | 2021-01-03 08:00 | NUR ---
OPENING NOTES ALERT AND ORIENTED. NO SHORTNESS OF BREATH ON ROOM AIR. PAIN IS 7/10 ON HIP. WOUND DRESSINGS SOAKED IN YELLOW-GREEN DRAINAGE. IV INFUSING WELL. PLAN OF CARE DISCUSSED WITH PATIENT. VERBALIZED UNDERSTANDING. CALL LIGHT WITHIN REACH. WILL MONITOR.
[2021-01-03 08:07] VITALS: BP_SYST 111
--- NOTE | 2021-01-03 09:07 | NUR ---
PAGED PAGED LUIS DENNIS AT [phone] SPOKE WITH .
[2021-01-03] MEDS ORDERED: MORPHINE 2 MG/ML INJ. SYRINGE IVP ONE (09:15)
--- NOTE | 2021-01-03 12:41 | NUR ---
HEENA HEATON DR, RAJNISH AT [phone] SPOKE WITH ,.
[2021-01-03 13:00] VITALS: BP_SYST 109
[2021-01-03] MEDS: MORPHINE 2 MG/ML INJ. SYRINGE IVP PRN ×3 (13:58→22:31)
[2021-01-03] MEDS: VANCOMYCIN HCL 1,000 MG in NS 250 ML IV SCH ×2 (14:00→21:35)
--- NOTE | 2021-01-03 14:00 | NUR ---
WOUND CARE WOUND CARE DONE. PROCEDURE TOLERATED BY PATIENT.
[2021-01-03 16:37] VITALS: BP_SYST 110
[2021-01-03] MEDS: FAMOTIDINE 20 MG TABLET PO SCH (18:08)
[2021-01-03 20:00] VITALS: BP_SYST 121
[2021-01-03] MEDS: INSULIN REGULAR, HUMAN 100 UNITS/ML, 10 ML VIAL (humuLIN R) SUBCUT PRN (20:57)
[2021-01-03] MEDS: OLANZapine 5 MG TABLET PO SCH (21:04)
[2021-01-04 00:30] VITALS: BP_SYST 109
--- NOTE | 2021-01-04 01:55 | NUR ---
CONSULTATION PAGED/CALLED Reason for Consultation: CELLULITIS Person Who was Notified: MERCEDES Consulting Physician: CHRISTEN CHAIREZ IS ONION FARMER Lithograph Operator Specialty: Ordering Physician:HEENA
--- NOTE | 2021-01-04 01:56 | NUR ---
CONSULTATION PAGED/CALLED Reason for Consultation: HYPONATREMIA Person Who was Notified: MERCEDES Consulting Physician: TY Liner Assembler Specialty: Ordering Physician: HEENA
[2021-01-04 04:00] VITALS: BP_SYST 105
[2021-01-04] MEDS: NACL 0.9% 1,000 ML IV SCH ×3 (05:09→16:45)
[2021-01-04] MEDS: MORPHINE 2 MG/ML INJ. SYRINGE IVP PRN ×3 (05:47→10:24)
[2021-01-04] MEDS: INSULIN REGULAR, HUMAN 100 UNITS/ML, 10 ML VIAL (humuLIN R) SUBCUT PRN ×4 (05:50→21:31)
[2021-01-04] MEDS: VANCOMYCIN HCL 1,000 MG in NS 250 ML IV SCH ×3 (06:04→21:10)
--- NOTE | 2021-01-04 06:05 | NUR ---
CONSULTATION PAGED/CALLED Reason for Consultation: HIP DEFORMITY Person Who was Notified: DR NAZANIN PARIKH Consulting Physician: DR NAZANIN PARIKH Cherry Dipper Specialty: Ordering Physician: HEENA
--- NOTE | 2021-01-04 07:45 | NUR ---
NOTES PATIENT AAOX 4. VITALS SIGNS STABLE. AFEBRILE. LUNGS BILATERALLY CLEAR. ABDOMEN SOFT AND NON DISTENDED. HAS IV ACCESS ON LEFT FOREARM #22. WITH NORMAL SALINE AT 80CC/HR INFUSING ON WELL. HAS WOUND ON LEFT HIP WITH DRESSING ON IT. CALL LIGHTS WITHIN REACH. BED LOW POSITION, ALARMED AND LOCKED. HAS RUBIO CATHETER IN PLACED. WILL CONTINUE TO MONITOR
[2021-01-04 08:02] LABS: BASOPHILS % (AUTO) 0.2 % (0.0-2.0); EOSINOPHILS # (AUTO) 0.4 K/uL (0.0-0.4); EOSINOPHILS % (AUTO) 2.6 % (0.0-4.0); HEMOGLOBIN 8.3 g/dL (14.0-18.0); LYMPHOCYTES # (AUTO) 4.2 K/uL (1.0-5.5); LYMPHOCYTES % (AUTO) 30.6 % (20.5-51.5); MEAN CORPUSCULAR HEMOGLOBIN 25 pg (27-31); MEAN CORPUSCULAR HGB CONC 32 % (32-36); MEAN CORPUSCULAR VOLUME 79 fL (79.0-98.0); MONOCYTES # (AUTO) 1.3 K/uL (0.0-1.0); MONOCYTES % (AUTO) 9.3 % (1.7-9.3); NEUTROPHILS # (AUTO) 7.8 K/uL (1.8-7.7); NEUTROPHILS % (AUTO) 57.3 % (40.0-70.0); RED BLOOD CELL COUNT(AUTO) 3.32 MIL/uL (4.2-6.2); RED CELL DISTRIBUTION WIDTH 19.1 % (9.0-15.0); WHITE BLOOD COUNT (AUTO) 13.7 K/uL (4.8-10.8)
[2021-01-04 09:02] LABS: PLATELET COUNT (AUTO) 803 K/uL (130-430)
[2021-01-04 09:04] LABS: ALBUMIN 1.5 g/dL (3.4-4.8); CALCIUM 8.4 mg/dL (8.4-11.0); CREATININE 0.45 mg/dL (0.55-1.30); POTASSIUM 3.7 mmol/L (3.5-5.1); TOTAL BILIRUBIN 0.2 mg/dL (0.0-1.0)
[2021-01-04 09:19] VITALS: BP_SYST 101
[2021-01-04] MEDS: SODIUM CHLORIDE 500 MG TABLET PO SCH (09:28)
[2021-01-04] MEDS: OLANZapine 5 MG TABLET PO SCH ×2 (09:29→21:09)
[2021-01-04] MEDS: FAMOTIDINE 20 MG TABLET PO SCH ×2 (09:29→18:16)
[2021-01-04] MEDS: ASPIRIN 81 MG TAB.CHEW PO SCH (09:29)
--- NOTE | 2021-01-04 09:30 | NUR ---
DUE MEDS GIVEN AT THIS TIME.
--- NOTE | 2021-01-04 09:31 | NUR ---
DR PARIKH CAME AND EVALUATE THE PATIENT.
--- NOTE | 2021-01-04 11:00 | NUR ---
REFUSED TO SEE THE WOUND ON THE LEFT HIP.
[2021-01-04 11:32] VITALS: BP_SYST 102
[2021-01-04] MEDS ORDERED: MORPHINE 2 MG/ML INJ. SYRINGE IVP PRN (13:30)
--- NOTE | 2021-01-04 14:28 | NUR ---
DR NAIK CALLED REGARDING PAIN MEDICATION MORPHINE NOT HELPING FOR THE PAIN
[2021-01-04 15:51] VITALS: BP_SYST 111
--- NOTE | 2021-01-04 16:00 | NUR ---
REFUSED TO HAVE LEFT HIP SEEN. CHANGED DRESSING. SAID LATER AND LATER.
--- NOTE | 2021-01-04 16:07 | NUR ---
HIGH ALERT NOTE: Called Dr. CRAWFORD back at [phone] identified within the medical roster to verify physician authenticity.
[2021-01-04] MEDS ORDERED: ACETAMINOPHEN 325 MG TABLET PO PRN (16:15)
--- NOTE | 2021-01-04 16:16 | NUR ---
DR CRAWFORD CALLED COVERING FOR DR NAIK AND MADE ORDER FOR TYLENOL PO FOR TEMPERATURE AND MORPHINE FROM 3 MG IV TO MORPHINE 4 MG IV EVERY 4 HOURS PRN FOR PAIN.
--- NOTE | 2021-01-04 17:01 | NUR ---
called [facility] admission, no beds available. They are not accepting any admission at this time
--- NOTE | 2021-01-04 18:55 | NUR ---
DUE MEDS GIVEN AT THIS TIME. LATEST BS 319 MG/DL. COVERAGE GIVEN. MADE COMFORTABLE.
[2021-01-04 20:00] VITALS: BP_SYST 115
[2021-01-04] MEDS: MUPIROCIN 2% TOPICAL OINTMENT 22 GM NS SCH (21:00)
[2021-01-04] MEDS: PIPERACILLIN/TAZO 4.5GM/DEX-IS 100 ML IV SCH (21:10)
[2021-01-04] MEDS: MORPHINE 4 MG INJ. 4 MG/ML VIAL IVP PRN (21:12)
--- NOTE | 2021-01-04 21:15 | NUR ---
Patient REFUSING skin assessment Refusing to Turn , procedures explained .
--- NOTE | 2021-01-05 | NUR ---
MORPHINE SULFATE 4 MG IVP ADMINISTER FOR ACUTE PAIN & HELPFUL .
[2021-01-05 01:00] VITALS: BP_SYST 109
[2021-01-05] MEDS: MORPHINE 4 MG INJ. 4 MG/ML VIAL IVP PRN ×5 (02:23→21:58)
--- NOTE | 2021-01-05 02:36 | NUR ---
MORPHINE SULFATE 4 MG IVP administer for acute pain 09/07 comfort measures implemented off loading with pillows position change encouraged & tolerated .
[2021-01-05] MEDS: NACL 0.9% 1,000 ML IV SCH ×2 (05:51→18:01)
[2021-01-05] MEDS: PIPERACILLIN/TAZO 4.5GM/DEX-IS 100 ML IV SCH ×3 (05:52→21:53)
[2021-01-05] MEDS: VANCOMYCIN HCL 1,000 MG in NS 250 ML IV SCH ×3 (05:52→21:54)
[2021-01-05] MEDS: INSULIN REGULAR, HUMAN 100 UNITS/ML, 10 ML VIAL (humuLIN R) SUBCUT PRN ×4 (06:03→21:59)
--- NOTE | 2021-01-05 08:00 | NUR ---
NOTES PATIENT AAOX 4. LUNGS BILATERALLY CLEAR. ABDOMEN SOFT AND NON DISTENDED. HAS IV ACCESS ON THE LEFT FOREARM #22 WITH NORMAL SALINE AT 80CC/HR INFUSING ON WELL. TOTAL BEDREST. AND TOTAL CARE. PATIENT CAN TURN TO SIDES. CALL LIGHTS WITHIN REACH. BED LOW POSITION, ALARMED AND LOCKED. WILL CONTINUE TO MONITOR PATIENTS STATUS.
[2021-01-05] MEDS: SODIUM CHLORIDE 500 MG TABLET PO SCH (08:15)
[2021-01-05] MEDS: ASPIRIN 81 MG TAB.CHEW PO SCH (08:15)
[2021-01-05] MEDS: OLANZapine 5 MG TABLET PO SCH ×2 (08:15→21:00)
[2021-01-05] MEDS: FAMOTIDINE 20 MG TABLET PO SCH ×2 (08:21→17:27)
[2021-01-05 08:38] VITALS: BP_SYST 109
--- NOTE | 2021-01-05 10:26 | NUR ---
Nutrition Update Nghia Scale 13 noted. Pt admitted for L hip cellulitis. Diet: [facility] BMI: 28 kg/m2 RD to follow per nutrition care standards.
[2021-01-05] MEDS: MUPIROCIN 2% TOPICAL OINTMENT 22 GM NS SCH ×2 (11:13→21:56)
--- NOTE | 2021-01-05 11:24 | NUR ---
LATEST BS 320 MG/DL. COVERAGE GIVEN OF HUMULIN R 8 UNITS SUBCUT LEFT DELTOID ARM.
[2021-01-05 12:00] VITALS: BP_SYST 112
--- NOTE | 2021-01-05 12:00 | NUR ---
ELIZABETH CARE AND HYGIENE DONE.
[2021-01-05 16:00] VITALS: BP_SYST 110
--- NOTE | 2021-01-05 16:41 | NUR ---
called [facility] no bed available , information faxed to [phone]. handoff to [facility] after hours CM, they will check for bed available after midnight.
--- NOTE | 2021-01-05 16:45 | NUR ---
LATEST BS 307 MG/DL. COVERAGE GIVEN.
--- NOTE | 2021-01-05 17:57 | NUR ---
Dietitian Recommendations * [facility] diet w/ Prosource BID, Ottoniel BID (supplements provide an additional 300 kcal/day, 35 gm protein/day) ELDER DAVIS Please refer to Nutrition Assessment for details. Addendum: 01/05/21 at [address] Amended: Links added.
--- NOTE | 2021-01-05 18:00 | NUR ---
DUE MEDS GIVEN ORDERED.
--- NOTE | 2021-01-05 19:06 | NUR ---
DRESSING CHANGED ON THE LEFT THIGH DRAINING WHITISH WITH SLIGHT BLOOD MOSTLY WHITISH DRAINING A LOT. CLEANSE NORMAL SALINE. APPLIED HYDROGEL COVERED WITH FOAM DRESSING ON IT. ON THE SACRAL AREA CLEANSE WITH NORMAL SALINE ELIZABETH CARE DONE. SCROTUM SWOLLEN DRY SCALY SKIN NOTED. ENDORSED TO INCOMING NURSE.
--- NOTE | 2021-01-05 19:21 | NUR ---
PLEASE INFORMED THE AM NURSE TO TELL THE FOOD COUNSELOR TO CALL CHRISTINE FROM [facility], IF THERE IS AVAILABLE BED FOR [facility] FOR TRANSFER UNDER [facility]ACEY TOVAR. PLEASE FOLLOW UP.
[2021-01-05 20:25] VITALS: BP_SYST 119
--- NOTE | 2021-01-05 22:09 | NUR ---
Patient REFUSE LININ CHANGE ALSO REFUSE WOUND CARE & DRESSING CHANGES TO HIP & BUTTOCKS AREAS THIS HOUR .
--- NOTE | 2021-01-05 22:18 | NUR ---
REFUSE ZYPREXA 5MG PO procedures explained , orders & benefits / .
--- NOTE | 2021-01-05 23:12 | NUR ---
MORPHINE SULFATE 4 MG IVP administer for general pain 09/07 position change encouraged comfirt measures helpful .
[2021-01-06 00:10] VITALS: BP_SYST 100
[2021-01-06] MEDS: MORPHINE 4 MG INJ. 4 MG/ML VIAL IVP PRN ×4 (02:14→10:05)
--- NOTE | 2021-01-06 02:25 | NUR ---
REFUSE patient REFUSE WOUND CARE THIS HOUR REFUSE LININ CHANGE THIS HOUR .
--- NOTE | 2021-01-06 02:26 | NUR ---
MORPHINE SULFATE 4 MG IVP administer for general pain 09/07 monitor continue / .
--- NOTE | 2021-01-06 03:31 | NUR ---
REFUSE , Patient REFUSE RIGHT FOOT DRESSING CHANGE & SKIN ASSESSMENT .
--- NOTE | 2021-01-06 03:32 | NUR ---
REFUSE LININ CHANGE & REFUSE SKIN ASSESSMENT & DRESSING CHANGE .
--- NOTE | 2021-01-06 05:00 | NUR ---
WOUND CARE IMPLEMENTED as ordered , patient tolerate kept clean and dry as needed /.
[2021-01-06] MEDS: VANCOMYCIN HCL 1,000 MG in NS 250 ML IV SCH (05:50)
[2021-01-06] MEDS: PIPERACILLIN/TAZO 4.5GM/DEX-IS 100 ML IV SCH (05:51)
[2021-01-06] MEDS: NACL 0.9% 1,000 ML IV SCH (05:52)
[2021-01-06] MEDS: INSULIN REGULAR, HUMAN 100 UNITS/ML, 10 ML VIAL (humuLIN R) SUBCUT PRN ×2 (06:04→12:30)
--- NOTE | 2021-01-06 06:06 | NUR ---
PHONED PAGED DR HEENA PORTER RE - [facility] FOR PICC LINE .
--- NOTE | 2021-01-06 06:11 | NUR ---
MD NAWAF RAUSCH CALLED AT SPOKE WITH DR.PALIWAL RAMIREZ AMIT WASTE PICKER.
[2021-01-06 08:05] VITALS: BP_SYST 95
--- NOTE | 2021-01-06 08:05 | NUR ---
INITIAL ROUNDS Received pt AAOx4, no s/s resp distress, c/o pain 04/10-had pain med earlier. Pt on Contact isolation precautions for MRSA Nares+. Plan of care for the day reviewed with pt-pt verbalized his understanding. IVF infusing well to LFA at ordered rate with no s/s infiltration to site. [place] draining to gravity with yellow urine. Pain management, disease process, skin and safety discussed-teach back done. Call light within reach.
[2021-01-06 08:55] LABS: PROTHROMBIN TIME 10.5 SECS (9.5-12.5)
[2021-01-06] MEDS: ASPIRIN 81 MG TAB.CHEW PO SCH ×2 (09:00→09:29)
[2021-01-06] MEDS: FAMOTIDINE 20 MG TABLET PO SCH (09:29)
[2021-01-06] MEDS: SODIUM CHLORIDE 500 MG TABLET PO SCH (09:30)
[2021-01-06] MEDS: OLANZapine 5 MG TABLET PO SCH (09:30)
[2021-01-06] MEDS: MUPIROCIN 2% TOPICAL OINTMENT 22 GM NS SCH (09:30)
[2021-01-06 11:23] VITALS: BP_SYST 91
--- NOTE | 2021-01-06 12:50 | NUR ---
WOUND Photos taken of wounds, new dressings applied. Pt tolerated well.
[2021-01-06 13:04] VITALS: BP_SYST 101
--- NOTE | 2021-01-06 13:15 | NUR ---
REPORT CALLED Report called to Bebe BURGER at [facility], She stated she will call me back, phone number given.
--- NOTE | 2021-01-06 13:30 | NUR ---
PT TRANSFERRED Report called to Bebe RN at [facility], she stated she will call back for report. Transfer packet with Transfer Orders and Medication Reconciliation form given to EMT with report. Exitcare provided explained and provided. [facility] ID band removed, replaced with ID band with pt's name and . IV catheter kept in place. All belongings sent with patient. Patient left floor via gurney escorted by EMT in no distress.
[2021-01-06] MEDS ORDERED: MUPIROCIN 2% TOPICAL OINTMENT 22 GM NS SCH (21:00)
== END 2021-01-06 13:30 | disposition short-term general hospital (02) | DRG 871 ==
LOC: SED 22:20 → SMU 01-03 03:15
PROVIDERS: ADMIT Internal Medicine Hospice and Palliative Medicine; ATTEND Internal Medicine Hospice and Palliative Medicine
DX: A41.9 Sepsis, unspecified organism (principal); E43 Unspecified severe protein-calorie malnutrition; L02.416 Cutaneous abscess of left lower limb; G82.20 Paraplegia, unspecified; L03.116 Cellulitis of left lower limb; M86.8X5 Other osteomyelitis, thigh; M84.452A Pathological fracture, left femur, initial encounter for fracture; I10 Essential (primary) hypertension; Z20.822 Contact with and (suspected) exposure to COVID-19; E11.69 Type 2 diabetes mellitus with other specified complication; F20.9 Schizophrenia, unspecified; E66.9 Obesity, unspecified; L89.229 Pressure ulcer of left hip, unspecified stage; Z99.3 Dependence on wheelchair; Z79.899 Other long term (current) drug therapy; Z79.82 Long term (current) use of aspirin; Z68.28 Body mass index [BMI] 28.0-28.9, adult
CPT/HCPCS: 36415; 76376; 80053; 80202; 82962; 83605; 85025; 85610-TC; 85730-TC; 87040-TC; 87081; J1815; J2270; J2543; J3370; J7050; Q9967